=== PATIENT | female | born 2000 | race Two or more races ===

== ENCOUNTER 2024-05-01 09:44 | Emergency (ER) | payer MEDICAID, OTHER ==
[~2024-05-01] VITALS: Ht 154.9 cm; Wt 116.4 kg
[2024-05-01 10:18] VITALS: BP 122/66; PULSE 101; RESP 16; TEMP 98.7; O2SAT 99
[2024-05-01] MEDS: ceFAZolin IM 1GM/2.5ML STERILE WATER IM ONE (11:30)
[2024-05-01 11:38] LABS: Basophils # (auto) 0.1 10 ^3/uL (0-0.2); Eosinophils # (auto) 0.1 10 ^3/uL (0-0.8); Nucleated Red Blood Cells % 0.1 %
[2024-05-01 11:40] LABS: Basophils % (auto) 0.4 % (0.0-2.0); Eosinophils % (auto) 0.6 % (0.0-7.0); Hematocrit 36.8 % (36.0-46.0); Lymphocytes # (auto) 2.6 10 ^3/uL (0.4-5.4); Lymphocytes % (auto) 19.1 % (10.0-50.0); Mean Corpuscular Hemoglobin 26.6 pg (28.0-32.0); Mean Corpuscular Hgb Conc. 32.5 g/dL (32.0-36.0); Monocytes # (auto) 1.1 10 ^3/uL (0-1.3); Monocytes % (auto) 8.2 % (0.0-12.0); Neutrophils # (auto) 9.6 10 ^3/uL (1.6-8.6); Neutrophils % (auto) 71.7 % (37.0-80.0); Platelet Count (auto) 251 10^3/uL (140-450); Red Blood Cells 4.49 10^6/uL (4.0-5.20); Red Cell Distribution Width 14.5 % (11.8-14.3); White Blood Cell 13.4 10^3/uL (4.4-10.8)
--- NOTE | 2024-05-01 11:47 | DVH ---
US OF THE LEFT BREAST INDICATION: redness, swelling, pain to medial portion of the left breast TECHNIQUE: Targeted left breast ultrasound was performed. COMPARISON: Prior exam dated: none FINDINGS: There is skin thickening and edema with hyperemia in the left breast at 9 o'clock in region of palpa ble abnormality with phlegmonous change/ developing abscess. IMPRESSION: Skin thickening and edema with hyperemia in the left breast at 9 o'clock in region of palpable abnorm ality with phlegmonous change/ developing abscess. Recommend medical management and repeat ultrasoun d in month. ACR Bi Rads Category:Category 2
[2024-05-01] MEDS ORDERED: IBUP-1454 PO (12:25)
[2024-05-01] MEDS ORDERED: DICL500C76 PO (12:25)
--- NOTE | 2024-05-01 12:27 | ED.PDOC ---
History of Present Illness(SKN HPI Comments 23-year-old female patient came into emergency room for redness and swelling to the medial portion of the left breast. Patient denies any fevers. Patient denies any history of diabetes. Patient denies any recent or . Chief Complaint: Abscess Time Seen by MD: 09:53 History of Present Illness: Nurses Notes Allergies: Coded Allergies: NO KNOWN ALLERGIES (Unverified , 05/01/24) Home Meds Active Scripts Ibuprofen (Ibuprofen) 600 Mg Tab, 1 TAB PO TID PRN for 30 Days, #90 TAB 0 Refills Prov:LANDON MARROQUIN [facility] 05/01/24 Dicloxacillin Sodium (Dicloxacillin Sodium) 500 Mg Cap, 500 MG PO Q6HR for 10 Days, #40 CAP 0 Refills Prov:LANDON MARROQUIN [facility] 05/01/24 Information Source: Patient Mode of Arrival: Ambulatory Family History Family History: Reviewed,noncontributory to illness Constitutional: denies: chills, diaphoresis, fatigue, fever, malaise, sweats, weakness, others EENTM: denies: blurred vision, double vision, ear bleeding, ear discharge, ear drainage, ear pain, ear ringing, eye pain, eye redness, hearing loss, mouth pain, mouth swelling, nasal discharge, nose bleeding, nose congestion, nose pain, photophobia, tearing, throat pain, throat swelling, voice changes, others Respiratory: denies: cough, hemoptysis, orthopnea, SOB at rest, shortness of breath, SOB with excertion, stridor, wheezing, others Gastrointestinal: denies: abdomen distended, abdominal pain, blood streaked bowels, constipated, diarrhea, dysphagia, difficulty swallowing, hematemesis, melena, nausea, poor appetite, poor fluid intake, rectal bleeding, rectal pain, vomiting, others Genitourinary: denies: abnormal vagina bleeding, burning, dyspareunia, dysuria, flank pain, frequency, hematuria, incontinence, pain, , vagina discharge, urgency, others Musculoskeletal: denies: back pain, gout, joint pain, joint swelling, muscle pain, muscle stiffness, neck pain, others Integumetry: reports: rash, others (Redness, swelling and tenderness to the left medial portion of the) Allergic/Immunocompromised: denies: Difficulty Healing, Frequent Infections, Hives, Itching, others Hematologic/Lymphatic: denies: anemia, blood clots, easy bleeding, easy bruising, swollen glands, others Endocrine: denies: excessive hunger, excessive sweating, excessive thirst, excessive urination, flushing, intolerance to cold, intolerance to heat, unexplained weight gain, unexplained weight loss, others Psychiatric: denies: anxiety, bipolar disorder, depression, hopeless, panic disorder, schizophrenia, sleepless, suicidal, others Physical Exam General Appearance: No Apparent Distress, Normal HEENT: Normal ENT Inspection, Pharynx Normal, TMs Normal Neck: Full Range of Motion, Non-Tender, Normal, Normal Inspection Respiratory: Chest Non-Tender, Lungs Clear, No Accessory Muscle Use, No Respiratory Distress, Normal Breath Sounds Cardiovascular: No Edema, No JVD, No Murmur, No Gallop, Normal Peripheral Pulses, Regular Rate/Rhythm Breast Exam: (L) Tenderness (Tenderness to the medial portion of the left breast), Other (Erythema, inflammation to the medial portion of the left breast approximately 8-10 cm in diameter, no fluctuation noted) Gastrointestinal: No Organomegaly, Non Tender, No Pulsatile Mass, Normal Bowel Sounds, Soft Genitalia: Deferred Pelvic: Deferred Rectal: Deferred Extremities: No calf tenderness, Normal capillary refill, Normal inspection, Normal range of motion, Non-tender, No pedal edema Musculoskeletal : Apperance: Normal Neurologic: Alert, 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 Was a procedure done?: No Differential Diagnosis (INTG) Differential Diagnosis: Cellulitis Differential Diagnosis: Cellulitis, Contact Dermatitis Differential Diagnosis: Cellulitis Abscess: Abscess Differential Diagnosis: Cellulitis X-Ray, Labs, Meds, VS Vital Signs Date Time Temp Pulse Resp B/P (MAP) Pulse Ox O2 Delivery O2 Flow Rate FiO2 05/01/24 10:18 98.7 101 16 122/66 (84) 99 98.7 05/01/24 10:18 101 16 99 Room Air 05/01/24 09:50 98.7 101 16 122/66 (84) 94 Lab Test 05/01/24 11:03 Range/Units White Blood Count 13.4 H 4.4-10.8 10^3/uL Red Blood Count 4.49 4.0-5.20 10^6/uL Hemoglobin 12.0 L 12.2-16.2 g/dL Hematocrit 36.8 36.0-46.0 % Mean Corpuscular Volume 82.0 80.0-100.0 fL Mean Corpuscular Hemoglobin 26.6 L 28.0-32.0 pg Mean Corpuscular Hemoglobin Concent 32.5 32.0-36.0 g/dL Red Cell Distribution Width 14.5 H 11.8-14.3 % Platelet Count 251 140-450 10^3/uL Mean Platelet Volume 9.0 6.9-10.8 fL Neutrophils (%) (Auto) 71.7 37.0-80.0 % Lymphocytes (%) (Auto) 19.1 10.0-50.0 % Monocytes (%) (Auto) 8.2 0.0-12.0 % Eosinophils (%) (Auto) 0.6 0.0-7.0 % Basophils (%) (Auto) 0.4 0.0-2.0 % Neutrophils # (Auto) 9.6 H 1.6-8.6 10 ^3/uL Lymphocytes # (Auto) 2.6 0.4-5.4 10 ^3/uL Monocytes # (Auto) 1.1 0-1.3 10 ^3/uL Eosinophils # (Auto) 0.1 0-0.8 10 ^3/uL Basophils # (Auto) 0.1 0-0.2 10 ^3/uL Nucleated Red Blood Cells 0.1 % C-Reactive Protein High Sensitivity 5.35 H <1.0 mg/dL Current Medications Medications (Trade) Dose Ordered Sig/Cristian Route Start Time Stop Time Status Last Admin Cefazolin Sodium (Ancef Intramuscular) 1 gm ONCE ONCE IM 05/01/24 11:30 05/01/24 11:31 DC 05/01/24 11:30 PATIENT: ROBERT JIMCCT: [id number]: [id number] : 2000 LOC: ER ROOM / BED: / AGE / SEX: 23 / F ADM STATUS: REG ER SERVICE [id number] ORDERING PHYSICIAN: LANDON MARROQUIN PROCEDURE(s): LBRST - L BREAST ULTRASOUND REASON: redness, swelling, pain to medial portion of the left breast ORDER NUMBER(s): [id number], ACCESSION NUMBER(s): [id number] US OF THE LEFT BREAST INDICATION: redness, swelling, pain to medial portion of the left breast TECHNIQUE: Targeted left breast ultrasound was performed. COMPARISON: Prior exam dated: none FINDINGS: There is skin thickening and edema with hyperemia in the left breast at 9 o'clock in region of palpable abnormality with phlegmonous change/ developing abscess. IMPRESSION: Skin thickening and edema with hyperemia in the left breast at 9 o'clock in region of palpable abnormality with phlegmonous change/ developing abscess. Recommend medical management and repeat ultrasound in month. ACR Bi Rads Category:Category 2 ATED BY: KAMLESH MARROQUIN MD DICTATED DATE/TIME: 05/01/24 1145 SIGNED BY: KAMLESH MARROQUIN MD SIGNED DATE/TIME: 05/01/24 1145 CC: X-Ray, Labs, Meds, VS Comment Patient advised to take the antibiotics as prescribed. Patient advised to return to the emergency room if she has increasing redness. Patient advised that per the ultrasound she needs to have it repeated in 1 month. On re-evaluation patient has symptomatic improvement. Patient is stable for discharge at this time. All test results and diagnostic imaging have been interpreted. All diagnostic findings, discharge care, and education instruction provided to the patient. Follow-up with PCP in 2-3 days Patient verbalized understanding, discharge instructions and agrees to treatment plan Vital signs are stable Patient is ambulatory Patient advised of which symptoms necessitate a return visit to the emergency room. Patient to return emergency room for any new worsening symptoms. Patient is aware that the purpose of this visit is for an acute medical emergency requiring emergent stabilization. Chronic conditions, including malignancies have not been ruled out. Patient is instructed to follow up with PCP as directed for continued care and workup. If unable to arrange follow up, patient is to return to the emergency room for reassessment. Patient was given verbal and written discharge instructions and acknowledges understanding Time of 1ST Reevaluation: 12:22 Reevaluation 1ST: Unchanged Patient Education/Counseling: Diagnosis, Treatment, Prognosis Family Education/Counseling: No Family Present Departure 1 Departure Time of Disposition: 12:30 Impression: Primary Impression: Cellulitis of breast Disposition: 01 HOME / SELF CARE / HOMELESS Condition: Stable e-Prescriptions Ibuprofen (Ibuprofen) 600 Mg Tab 1 TAB PO TID PRN for 30 Days, #90 TAB 0 Refills Prov: LANDON MARROQUIN [facility] 05/01/24 Dicloxacillin Sodium (Dicloxacillin Sodium) 500 Mg Cap 500 MG PO Q6HR for 10 Days, #40 CAP 0 Refills Prov: LANDON MARROQUINP 05/01/24 Discharged With: Self Critical Care Note Critical Care Time?: No Stability Stability form required: No Heart Score Heart Score: Heart Score Response (Comments) Value History N/A 0 EKG N/A 0 Age N/A 0 Risk Factors N/A 0 Troponin N/A 0 Total 0 LANDON MARROQUIN [facility] May 01, 2024 12:27
== END 2024-05-01 12:31 | disposition home or self-care (01) ==
LOC: ER 09:44
DX: N61.0 Mastitis without abscess (principal); Z79.1 Long term (current) use of non-steroidal anti-inflammatories (NSAID); Z79.2 Long term (current) use of antibiotics
CPT/HCPCS: 36415; 76642; 85025; 86141; 96372; 99285; J0690